=== PATIENT | male | born 1995 | race Two or more races ===

== ENCOUNTER 2017-12-28 19:03 | Emergency (ER) | payer SELFPAY ==
[~2017-12-28] VITALS: Ht 177.8 cm; Wt 101.4 kg
[2017-12-28 19:06] VITALS: BP 151/83; PULSE 64; RESP 18; TEMP 97.8; O2SAT 99
[2017-12-28] MEDS ORDERED: BACT800T5 PO (19:31)
--- NOTE | 2017-12-28 19:32 | PD ---
HPI Chief Complaint: Skin Problem Time Seen by Provider: 19:24 Travel History International Travel<30 days: No Contact w/Intl Traveler<30days: No Traveled to known affect area: No History of Present Illness HPI This is a 22-year-old male here with possible insect bite to his posterior back 3 days. Areas become slightly more painful, red, swollen. No fever chills. Symptom severity is mild to moderate. No aggravating or alleviating factors. No drainage from site. PFSH Social History Alcohol Use: Yes Tobacco Use: No Substance Use: No Allergies-Medications (Allergen,Severity, Reaction): Coded Allergies: No Known Allergies (Unverified , 12/28/17) Reported Meds & Prescriptions Reported Meds & Active Scripts Active No Active Prescriptions or Reported Medications Review of Systems Except as stated in HPI: all other systems reviewed are Neg General / Constitutional: No: Fever Eyes: No: Visual changes HENT: No: Headaches Cardiovascular: No: Chest Pain or Discomfort Respiratory: No: Shortness of Breath Gastrointestinal: No: Abdominal Pain Genitourinary: No: Dysuria Physical Exam Narrative GENERAL: Alert and well-appearing 22-year-old male SKIN: Warm and dry. Multiple indurated and inflamed areas to the left upper back. There is no fluctuance or surrounding cellulitis. No drainage from the sites. HEAD: Normocephalic. NECK: Supple CARDIOVASCULAR: Regular rate and rhythm RESPIRATORY: Breath sounds equal bilaterally. No accessory muscle use. GASTROINTESTINAL: Abdomen soft, non-tender, nondistended. MUSCULOSKELETAL: No cyanosis, or edema. Data Data Last Documented VS Vital Signs Date Time Temp Pulse Resp B/P (MAP) Pulse Ox O2 Delivery O2 Flow Rate FiO2 12/28/17 19:06 97.8 64 18 151/83 (105) 99 MDM Medical Decision Making Medical Screen Exam Complete: Yes Emergency Medical Condition: Yes Differential Diagnosis Abscess, cellulitis, infected insect bite Narrative Course 22-year-old male here with early abscess versus inflamed insect bite to the left upper back. The area is not ready for incision and drainage. He will be put on Bactrim. Warm compresses. Follow-up with his doctor. Diagnosis Primary Impression: Abscess Referrals: Primary Care Physician Additional Instructions: Antibiotics as directed. Warm compresses to the area several times per day Scripts Sulfamethoxazole-Trimethoprim (Bactrim DS) 800-160 Mg Tab 1 TAB PO BID for Infection, #20 TAB 0 Refills Prov: Suzanne Feldman 12/28/17 Disposition: 01 DISCHARGE HOME Condition: Stable Suzanne Feldman December 28, 2017 19:32
== END 2017-12-28 19:39 | disposition home or self-care (01) ==
LOC: PHEFT 19:03
DX: L02.212 Cutaneous abscess of back [any part, except buttock and flank] (principal)
CPT/HCPCS: 99283